=== PATIENT | male | born 1965 | race Native Hawaiian/Other Pacific Islander ===

== ENCOUNTER 2020-08-20 16:30 | Outpatient (CLI) | payer OTHER ==
[2020-08-31 11:07] LABS: PLATELET COUNT 179 K/uL (142-355)
[2020-08-31 11:09] LABS: POTASSIUM 4.2 mmol/L (3.6-5.2); SODIUM 140 mmol/L (136-145)
== END 2020-08-20 19:00 ==
LOC: LAB 16:30
PROVIDERS: ATTEND Nurse Practitioner Family
DX: R11.2 Nausea with vomiting, unspecified (principal); E86.0 Dehydration; R42 Dizziness and giddiness; R06.00 Dyspnea, unspecified
CPT/HCPCS: 80053; 82150; 82550; 82553; 83690; 83735; 84484; 85027

== ENCOUNTER 2020-08-20 17:47 | Emergency (ER) | payer OTHER ==
[2020-08-31 09:45] LABS: PLATELET COUNT 173 K/uL (142-355)
[2020-08-31 09:48] LABS: SODIUM 139 mmol/L (136-145)
== END 2020-08-20 21:11 | disposition home or self-care (01) ==
LOC: ED 17:47
PROVIDERS: Family Medicine
DX: E86.0 Dehydration (principal); T67.5XXA Heat exhaustion, unspecified, initial encounter; X30.XXXA Exposure to excessive natural heat, initial encounter; Y92.89 Other specified places as the place of occurrence of the external cause
CPT/HCPCS: 80053; 81000; 82550; 84484; 85027; 87040; 93005; 96360; 96365; 99284

== ENCOUNTER 2020-11-06 16:57 | Outpatient (CLI) | payer OTHER | END 2020-11-06 19:15 | disposition home or self-care (01) | LOC: RAD 16:57 | PROVIDERS: ATTEND Nurse Practitioner Family | DX: S61.230A Puncture wound without foreign body of right index finger without damage to nail, initial encounter (principal) ==